=== PATIENT | female | born 1990 | race Caucasian/White ===

== ENCOUNTER 2016-09-28 09:29 | Day surgery (SDC) | payer OTHER ==
[~2016-09-28 09:29] MED LIST: ACETAMINOPHEN 1,000 MG/100 ML BTL IV ONE; CEFAZOLIN 2 Gram 2 GM/50 ML BAG IVPB ONE
[2016-09-28 09:37] LABS: BASO % 0.5 % (0-6); GRAN % 66.6 % (47-80); HEMATOCRIT 38.1 % (35.0-47.0); HEMOGLOBIN 11.9 gm/dl (11.6-16.0); LYMPH % 22.2 % (16-45); MEAN CELL VOLUME 82.8 fl (81-97); MEAN CORPUSCULAR HEMOGLOBIN 25.9 pg (27-33); MEAN CORPUSCULAR HGB CONC 31.2 g/dl (32-36); MEAN PLATELET VOLUME 10.2 fl (7.4-10.4); MONO % 3.7 % (0-9); PLATELET COUNT 342 K/uL (130-400); RED CELL DISTRIBUTION WIDTH 13.6 % (11.5-14.5); WHITE BLOOD COUNT W/O DIFF 9.5 K/uL (4.2-12.2)
[2016-09-28] MEDS ORDERED: LIDOCAINE 2% MDV (20MG/ML) 20ML VIAL IV ONE (12:30)
[2016-09-28] MEDS ORDERED: SEVOFLURANE 250 ML INH ONE (12:30)
[2016-09-28] MEDS ORDERED: KETOROLAC 30 MG/ML VIAL IVP ONE (12:30)
[2016-09-28] MEDS ORDERED: PROPOFOL 10 MG/ML VIAL IV ONE (12:30)
[2016-09-28] MEDS ORDERED: HYDROMORPHONE HCL 2 MG/ML VIAL IV ONE (12:30)
[2016-09-28] MEDS ORDERED: ONDANSETRON HCL IV 4 MG/2 ML VIAL IVP ONE (12:30)
[2016-09-28] MEDS ORDERED: OXYCODONE HCL/APAP 5MG/325MG TABLET PO ONE (12:49)
--- NOTE | 2016-10-02 18:32 | Operative Note ---
DATE OF SURGERY: 09/28/2016 PREOPERATIVE DIAGNOSIS: Displaced fracture of the left distal radius and ulna. POSTOPERATIVE DIAGNOSIS: Displaced fracture of the left distal radius and ulna. OPERATIVE PROCEDURE: Closed reduction and percutaneous pinning, left distal radius. DESCRIPTION: This 26-year-old female was take into the operating room and placed in the supine position on the operating room table. A general anesthetic was administered, and the previously place splint was removed. The image intensifier was brought into the operative field, and a closed reduction of the fracture was accomplished without difficulty. The image intensifier was used to confirm anatomic reduction of the fracture fragments. Subsequently, the left wrist was prepped with Hibiclens and draped in the usual sterile fashion, and again, the image intensifier was brought into the operative field to visualize placement of two 0.054 K-wires across the radial styloid into the distal radius. These pins were placed obliquely under image intensifier guidance with the fracture reduced, and after completion, the final position alignment of the pins and bone were confirmed and found to be satisfactory. The pins were cut and bent over, and AP plaster mold was applied after sterile dressings, and the patient was taken to the recovery room in satisfactory condition. GROSS PATHOLOGY. This patient demonstrated a displaced fracture of the distal radius and ulna with an apex anterior fracture transversely across the distal radius, it did not appear to enter the distal radial ulnar joint, but had significant dorsal angulation of the distal fracture fragment. FORT[place]
== END 2016-09-28 12:00 | disposition home or self-care (01) ==
LOC: SUR 09:29
PROVIDERS: ATTEND Orthopaedic Surgery
DX: S52.502A Unspecified fracture of the lower end of left radius, initial encounter for closed fracture (principal)
CPT/HCPCS: 76000; 81025; 85025; J1885; J2405